=== PATIENT | female | born 1970 | race Caucasian/White ===

== ENCOUNTER 2017-01-05 00:22 | Observation (INO) | payer OTHER ==
[2017-01-05] MEDS ORDERED: ASPIRIN 81 MG CHEW PO STA (00:45)
[2017-01-05] MEDS ORDERED: NITROGLYCERIN SL TABS 0.4 MG TAB SUBLINGUAL STA (00:45)
--- NOTE | 2017-01-05 00:50 | ED ---
General Adult HPI - General Chief complaint: Chest Pain Stated complaint: Chest Pain Time Seen by Provider: 01/05/17 00:40 Source: patient, RN notes reviewed Mode of arrival: EMS Limitations: no limitations - History of Present Illness Initial comments: Patient is a pleasant 46-year-old female presenting to the emergency Department with palpitations. Onset was around 2 hours ago. Symptoms have resolved with adenosine by EMS. They did report patient being in SVT. Patient has had similar symptoms approximately 5 times previously. Patient has had some intermittent left scapular discomfort since yesterday that radiates anteriorly towards the chest. No chest discomfort at this time. Patient has some mild back discomfort at this time. No leg pain or leg swelling. No cough or fever. Patient states she may been slightly short of breath earlier. No nausea or diaphoresis. Patient is currently staying at [facility] for heroin and crack problems. - Related Data Allergies Allergy/AdvReac Type Severity Reaction Status Date / Time shellfish derived [Shellfish] AdvReac Rash/Hives Verified 01/05/17 00:32 tramadol [From Ultram] AdvReac Unknown Verified 01/05/17 00:32 Review of Systems ROS Statement: Those systems with pertinent positive or pertinent negative responses have been documented in the HPI. ROS Other: All systems not noted in ROS Statement are negative. Constitutional: Denies: fever Eyes: Denies: eye pain ENT: Denies: ear pain Respiratory: Reports: dyspnea. Denies: cough Cardiovascular: Reports: chest pain Endocrine: Denies: fatigue Gastrointestinal: Denies: abdominal pain Genitourinary: Denies: dysuria Musculoskeletal: Reports: back pain Skin: Denies: rash Neurological: Denies: headache Past Medical History Past Medical History: Asthma Additional Past Medical History / Comment(s): hx SVT History of Any Multi-Drug Resistant Organisms: None Reported Past Surgical History: Cholecystectomy, Tonsillectomy, Tubal Ligation Past Psychological History: Anxiety, Depression Smoking Status: Current every day smoker Past Alcohol Use History: None Reported Past Drug Use History: Cocaine, Heroin General Exam Limitations: no limitations General appearance: alert, in no apparent distress Head exam: Present: atraumatic Eye exam: Present: normal appearance, PERRL ENT exam: Present: normal oropharynx Neck exam: Present: normal inspection Respiratory exam: Present: normal lung sounds bilaterally. Absent: chest wall tenderness Cardiovascular Exam: Present: regular rate, normal rhythm Expanded Peripheral pulses: 2+: Radial (R), Radial (L), Dorsalis Pedis (R), Dorsalis Pedis (L) GI/Abdominal exam: Present: soft. Absent: tenderness Extremities exam: Present: normal inspection. Absent: pedal edema, calf tenderness Back exam: Present: tenderness (Minimal tenderness inferior lateral to left scapula) Neurological exam: Present: alert Psychiatric exam: Present: normal affect, normal mood Skin exam: Present: normal color Course Vital Signs 01/05/17 01/05/17 01/05/17 00:25 00:40 00:57 Temperature 98.0 F Pulse Rate 88 88 90 Respiratory 20 18 18 Rate Blood Pressure 123/77 123/83 111/72 O2 Sat by Pulse 98 98 99 Oximetry 01/05/17 01/05/17 01:27 02:09 Temperature Pulse Rate 80 59 L Respiratory 20 20 Rate Blood Pressure 111/71 118/76 O2 Sat by Pulse 98 97 Oximetry EKG Findings - EKG Comments: EKG Findings:: Normal sinus rhythm 86. MI 144. QRS 72. QT 378. QTC 452. Normal axis. Normal QRS. No acute ST change. Medical Decision Making - Medical Decision Making Patient reexamined and resting comfortably in bed. Patient symptom-free following a trip glycerin. Patient updated on results and plan. Case discussed with practitioner assistant women's tennis coach, who will admit for Dr. Johnson, covering for hospital call. - Lab Data Result diagrams: 01/05/17 00:40 01/05/17 00:40 Lab Results 01/05/17 01/05/17 01/05/17 Range/Units 00:40 00:40 00:40 WBC 6.5 (3.8-10.6) k/uL RBC 4.63 (3.80-5.40) m/uL Hgb 13.9 (11.4-16.0) gm/dL Hct 41.8 (34.0-46.0) % MCV 90.3 (80.0-100.0) fL MCH 30.1 (25.0-35.0) pg MCHC 33.3 (31.0-37.0) g/dL RDW 15.1 (11.5-15.5) % Plt Count 190 (150-450) k/uL Neutrophils % 51 % Lymphocytes % 40 % Monocytes % 4 % Eosinophils % 2 % Basophils % 1 % Neutrophils # 3.3 (1.3-7.7) k/uL Lymphocytes # 2.6 (1.0-4.8) k/uL Monocytes # 0.3 (0-1.0) k/uL Eosinophils # 0.1 (0-0.7) k/uL Basophils # 0.1 (0-0.2) k/uL PT (9.0-12.0) sec INR (<1.1) APTT (22.0-30.0) sec D-Dimer (<0.60) mg/L FEU Sodium 139 (137-145) mmol/L Potassium 4.5 (3.5-5.1) mmol/L Chloride 110 H (98-107) mmol/L Carbon Dioxide 19 L (22-30) mmol/L Anion Gap 10 mmol/L BUN 19 H (7-17) mg/dL Creatinine 0.70 (0.52-1.04) mg/dL Est GFR (MDRD) Af Amer >60 (>60 ml/min/1.73 sqM) Est GFR (MDRD) Non-Af >60 (>60 ml/min/1.73 sqM) Glucose 105 H (74-99) mg/dL Calcium 9.4 (8.4-10.2) mg/dL Magnesium 2.0 (1.6-2.3) mg/dL Total Bilirubin 0.3 (0.2-1.3) mg/dL AST 31 (14-36) U/L ALT 49 (9-52) U/L Alkaline Phosphatase 77 (38-126) U/L Total Creatine Kinase 44 (30-135) U/L CK-MB (CK-2) 0.9 (0.0-2.4) ng/mL CK-MB (CK-2) Rel Index 2.0 Troponin I <0.012 (0.000-0.034) ng/mL Total Protein 6.9 (6.3-8.2) g/dL Albumin 3.9 (3.5-5.0) g/dL TSH 2.960 (0.465-4.680) mIU/L Free T4 0.80 (0.78-2.19) ng/dL Free T3 pg/mL 3.3 (2.8-5.3) pg/ml 01/05/17 Range/Units 00:40 WBC (3.8-10.6) k/uL RBC (3.80-5.40) m/uL Hgb (11.4-16.0) gm/dL Hct (34.0-46.0) % MCV (80.0-100.0) fL MCH (25.0-35.0) pg MCHC (31.0-37.0) g/dL RDW (11.5-15.5) % Plt Count (150-450) k/uL Neutrophils % % Lymphocytes % % Monocytes % % Eosinophils % % Basophils % % Neutrophils # (1.3-7.7) k/uL Lymphocytes # (1.0-4.8) k/uL Monocytes # (0-1.0) k/uL Eosinophils # (0-0.7) k/uL Basophils # (0-0.2) k/uL PT 11.0 (9.0-12.0) sec INR 1.1 (<1.1) APTT 27.5 (22.0-30.0) sec D-Dimer 0.21 (<0.60) mg/L FEU Sodium (137-145) mmol/L Potassium (3.5-5.1) mmol/L Chloride (98-107) mmol/L Carbon Dioxide (22-30) mmol/L Anion Gap mmol/L BUN (7-17) mg/dL Creatinine (0.52-1.04) mg/dL Est GFR (MDRD) Af Amer (>60 ml/min/1.73 sqM) Est GFR (MDRD) Non-Af (>60 ml/min/1.73 sqM) Glucose (74-99) mg/dL Calcium (8.4-10.2) mg/dL Magnesium (1.6-2.3) mg/dL Total Bilirubin (0.2-1.3) mg/dL AST (14-36) U/L ALT (9-52) U/L Alkaline Phosphatase (38-126) U/L Total Creatine Kinase (30-135) U/L CK-MB (CK-2) (0.0-2.4) ng/mL CK-MB (CK-2) Rel Index Troponin I (0.000-0.034) ng/mL Total Protein (6.3-8.2) g/dL Albumin (3.5-5.0) g/dL TSH (0.465-4.680) mIU/L Free T4 (0.78-2.19) ng/dL Free T3 pg/mL (2.8-5.3) pg/ml - Radiology Data Radiology results: image reviewed (Chest x-ray shows no airspace consolidation. Tiny rounded metallic foreign bodies soft tissue lower back.) Critical Care Time Critical Care Time: Yes Total Critical Care Time: 31 Disposition Clinical Impression: Unstable angina pectoris Disposition: ADMITTED IP TO THIS HOSP Referrals: None,Stated [Primary Care Provider] - 1-2 days Decision Time: 02:21
[2017-01-05 00:58] LABS: Basophils # (A) 0.1 k/uL (0-0.2); Basophils % (A) 1 %; CH 30.7; CHCM 34.1; Eosinophils # (A) 0.1 k/uL (0-0.7); Eosinophils % (A) 2 %; HCT 41.8 % (34.0-46.0); HDW 2.37; HGB 13.9 gm/dL (11.4-16.0); Luc # (Auto) 0.17; Luc % (Auto) 3; Lymphocytes # (A) 2.6 k/uL (1.0-4.8); Lymphocytes % (A) 40 %; MCH 30.1 pg (25.0-35.0); MCHC 33.3 g/dL (31.0-37.0); MCV 90.3 fL (80.0-100.0); Mean Platelet Volume 8.2; Monocytes # (A) 0.3 k/uL (0-1.0); Monocytes % (A) 4 %; Neutrophils # (A) 3.3 k/uL (1.3-7.7); Neutrophils % (A) 51 %; RBC 4.63 m/uL (3.80-5.40); RDW 15.1 % (11.5-15.5); WBC 6.5 k/uL (3.8-10.6); WBC (Perox) 6.35
[2017-01-05 01:09] LABS: ALT 49 U/L (9-52); AST 31 U/L (14-36); Alkaline Phosphatase 77 U/L (38-126); Anion Gap 10 mmol/L; Blood Urea Nitrogen 19 mg/dL (7-17); Calcium 9.4 mg/dL (8.4-10.2); Carbon Dioxide 19 mmol/L (22-30); Chloride 110 mmol/L (98-107); Glucose 105 mg/dL (74-99); Non-African American GFR(MDRD) >60 (>60 ml/min/1.73 sqM); Potassium 4.5 mmol/L (3.5-5.1); Sodium 139 mmol/L (137-145); Total Bilirubin 0.3 mg/dL (0.2-1.3); Total Protein 6.9 g/dL (6.3-8.2)
[2017-01-05 01:14] LABS: INR 1.1 (<1.1); Partial Thromboplastin Time 27.5 sec (22.0-30.0)
[2017-01-05 01:27] LABS: Creatine Kinase 44 U/L (30-135)
[2017-01-05 01:38] LABS: Creatine Kinase MB 0.9 ng/mL (0.0-2.4); Troponin I <0.012 ng/mL (0.000-0.034)
--- NOTE | 2017-01-05 02:14 | XR ---
EXAM: XR Chest, 2 Views CLINICAL HISTORY: Tachycardia. Chest pain. TECHNIQUE: Frontal and lateral views of the chest. COMPARISON: No relevant prior studies available. FINDINGS: Lungs: No airspace consolidation. Pleural space: No significant pleural effusion. No pneumothorax. Heart: Normal cardiac silhouette. Mediastinum: Unremarkable. Bones/joints: Unremarkable as visualized. Soft tissues: Tiny rounded metallic foreign bodies project over the soft tissues of the lower back. IMPRESSION: 1. No airspace consolidation or pleural effusion. 2. Normal cardiac mediastinal silhouette. 3. Tiny rounded metallic foreign bodies project over the soft tissues of the lower back.
[2017-01-05] MEDS ORDERED: HEPARIN SODIUM,PORCINE 5,000 UNIT/ML 1 ML VIAL IV ONE (02:21)
[2017-01-05] MEDS ORDERED: HEPARIN SODIUM,PORCINE 5,000 UNIT/ML 1 ML VIAL IV PRN (02:21)
[2017-01-05] MEDS ORDERED: NITROGLYCERIN SL TABS 0.4 MG TAB SUBLINGUAL PRN (02:21)
[2017-01-05] MEDS ORDERED: HEPARIN SODIUM,PORCINE/D5W PMX 25,000 UNIT in DEXTROSE/WATER 1 500ML.BAG IV SCH (02:30)
[2017-01-05 03:38] VITALS: BMI 25.1
[2017-01-05 04:55] VITALS: RESP 18
[2017-01-05] MEDS ORDERED: NITROGLYCERIN OINT 1 INCH/GM PACKET TOPICAL SCH (06:00)
[2017-01-05 07:17] LABS: Mean Platelet Volume 8.1
[2017-01-05 07:55] LABS: Creatine Kinase 29 U/L (30-135)
[2017-01-05 08:07] LABS: Creatine Kinase MB 0.7 ng/mL (0.0-2.4); Troponin I <0.012 ng/mL (0.000-0.034)
--- NOTE | 2017-01-05 10:25 | P.CRDCN ---
History of Present Illness Consult date: 01/05/17 Requesting physician: Abdoul Johnson Reason for Consult (text): SVT Chief complaint: Palpitations History of present illness: This is a 46-year-old female with history of prior episodes of SVT, asthma, nicotine dependence, emphysema,anxiety, who is currently at [facility] for heroin use. Yesterday the patient states that she felt palpitations in her heart racing fast, she's had multiple episodes of SVT in the past and she states usually when she bears down she can break herself out of it. She was unable to do this yesterday and therefore EMS was called. According to EMS documentation, on her arrival patient's heart rate was 170, they did give her 6 mg of adenosine and she converted to normal sinus rhythm. We don't have a copy of that EKG in the chart. Blood pressure on arrival 116/77. Chest x-ray did not reveal any consolidation or pleural effusion. Initial EKG was performed here on arrival was normal sinus rhythm with no acute changes. Repeat EKG this morning shows normal sinus rhythm with no acute changes. CBC normal. D-dimer 0.21. Potassium 4.5, BUN 19, creatinine 0.7. Troponins have been negative 2. TSH and free T4 are normal. Magnesium 2.0. Let pressure this morning 102/60 with heart rate in the 60s. According to the patient, she states she used to be on metoprolol tartrate 50 mg, but has not taken any of her medications for approximately 2 years she has been homeless. Patient is quite anxious this morning because she is scheduled to have a meeting at noon at [facility] regarding housing for her. She is afraid if she notices a meeting that she will again be homeless. No further episodes of SVT here. Past Medical History Past Medical History: Asthma, Supraventricular Tachycardia (SVT) Additional Past Medical History / Comment(s): last episode of SVT was 2 mo ago pt no longer takes meds for it due to being homeless ,hypoglyemia History of Any Multi-Drug Resistant Organisms: None Reported Past Surgical History: Cholecystectomy, Tonsillectomy, Tubal Ligation Past Anesthesia/Blood Transfusion Reactions: No Reported Reaction Past Psychological History: Anxiety, Depression Smoking Status: Current every day smoker Past Alcohol Use History: None Reported Past Drug Use History: Cocaine, Heroin Additional Drug Use History / Comment(s): pt currently in [facility] for rehab. last use date was 12/20/16 - daily user prior to rehab for 1.5 to 2 years - Past Family History Father Family Medical History: Congestive Heart Failure (CHF) Additional Family Medical History / Comment(s): passed at 50 Mother Additional Family Medical History / Comment(s): defib insertion passed at 67 Medications and Allergies Home Medications Medication Instructions Recorded Confirmed Type Acetaminophen Tab [Tylenol Tab] 650 mg PO Q4H PRN 01/05/17 01/05/17 History Calcium Carb/Magnesium Ox,Carb 2 tab PO TID PRN 01/05/17 01/05/17 History [Jaciel-Mag 500-250 MG Chewable] Ibuprofen [Motrin] 600 mg PO Q6HR PRN 01/05/17 01/05/17 History Mirtazapine [Remeron] 15 mg PO HS PRN 01/05/17 01/05/17 History Ondansetron HCl [Zofran] 8 mg PO Q6H PRN 01/05/17 01/05/17 History busPIRone HCl [Buspar] 10 mg PO TID PRN 01/05/17 01/05/17 History Allergies Allergy/AdvReac Type Severity Reaction Status Date / Time shellfish derived [Shellfish] AdvReac Rash/Hives Verified 01/05/17 08:08 tramadol [From Ultram] AdvReac Unknown Verified 01/05/17 08:08 Physical Exam Vitals: Vital Signs Temp Pulse Pulse Pulse Resp BP BP 01/05/17 07:43 98.0 F 61 18 103/63 01/05/17 04:00 97.9 F 63 70 18 97/56 01/05/17 03:22 97.7 F 64 20 99/62 01/05/17 02:09 59 L 20 118/76 01/05/17 01:27 80 20 111/71 01/05/17 00:57 90 18 111/72 01/05/17 00:40 88 18 123/83 01/05/17 00:25 98.0 F 88 20 123/77 Pulse Ox 01/05/17 07:43 99 01/05/17 04:00 98 01/05/17 03:22 100 01/05/17 02:09 97 01/05/17 01:27 98 01/05/17 00:57 99 01/05/17 00:40 98 01/05/17 00:25 98 Intake and Output 01/04/17 01/05/17 01/05/17 22:59 06:59 14:59 Other: Voiding Method Toilet Toilet # Voids 2 Weight 60.5 kg PHYSICAL EXAMINATION: HEENT: Head is atraumatic, normocephalic. Pupils equal, round. Neck is supple. There is no elevated jugular venous pressure. HEART EXAMINATION: Heart S1, S2 normal. No murmur or gallop heard. CHEST EXAMINATION: His reveal decreased air exchange throughout with scattered coarse wheezes throughout. Patient is noted to have several small patches on her mid and lower back apparently used for pain control. ABDOMEN: Soft, nontender. Bowel sounds are heard. No organomegaly noted. EXTREMITIES:1+ peripheral pulses with no evidence of peripheral edema and no calf tenderness noted. NEUROLOGIC patient is awake, alert and oriented -3. . Results 01/05/17 06:20 01/05/17 00:40 Cardiac Enzymes 01/05/17 01/05/17 01/05/17 Range/Units 00:40 00:40 06:20 AST 31 (14-36) U/L CK-MB (CK-2) 0.9 0.7 (0.0-2.4) ng/mL Troponin I <0.012 <0.012 (0.000-0.034) ng/mL Coagulation 01/05/17 Range/Units 00:40 PT 11.0 (9.0-12.0) sec APTT 27.5 (22.0-30.0) sec CBC 01/05/17 01/05/17 Range/Units 00:40 06:20 WBC 6.5 (3.8-10.6) k/uL RBC 4.63 (3.80-5.40) m/uL Hgb 13.9 (11.4-16.0) gm/dL Hct 41.8 (34.0-46.0) % Plt Count 190 204 (150-450) k/uL Comprehensive Metabolic Panel 01/05/17 Range/Units 00:40 Sodium 139 (137-145) mmol/L Potassium 4.5 (3.5-5.1) mmol/L Chloride 110 H (98-107) mmol/L Carbon Dioxide 19 L (22-30) mmol/L BUN 19 H (7-17) mg/dL Creatinine 0.70 (0.52-1.04) mg/dL Glucose 105 H (74-99) mg/dL Calcium 9.4 (8.4-10.2) mg/dL AST 31 (14-36) U/L ALT 49 (9-52) U/L Alkaline Phosphatase 77 (38-126) U/L Total Protein 6.9 (6.3-8.2) g/dL Albumin 3.9 (3.5-5.0) g/dL Current Medications Generic Name Dose Route Start Last Admin Trade Name Freq PRN Reason Stop Dose Admin Aspirin 325 mg 01/06/17 09:00 Aspirin PO DAILY [facility] Heparin Sodium (Porcine) 0 unit 01/05/17 02:21 Heparin IV Q6HR PRN Low PTT Protocol Heparin Sodium/Dextrose 25,000 500 mls @ 14.47 mls/hr 01/05/17 02:30 03:13 unit/ IV Solution IV 12 units/kg/hr .Q24H [facility] 14.47 mls/hr Protocol Administration 12 UNITS/KG/HR Nitroglycerin 1 inch 01/05/17 06:00 01/05/17 06:42 Nitro-Bid Oint TOPICAL Not Given Q6HR [facility] Nitroglycerin 0.4 mg 01/05/17 02:21 Nitrostat SUBLINGUAL Q5M PRN Chest Pain Intake and Output 01/04/17 01/05/17 01/05/17 22:59 06:59 14:59 Other: Voiding Method Toilet Toilet # Voids 2 Weight 60.5 kg 01/05/17 06:20 01/05/17 00:40 EKG Interpretations (text) EKG here shows normal sinus rhythm with no acute changes. Assessment and Plan Plan: Assessment and plan #1 symptoms of palpitations and heart racing, according to EMS documentation patient was in SVT, we do not have an EKG at this time. Have requested a copy of that EKG. Patient did receive 6 mg of adenosine. EKG on arrival here shows normal sinus rhythm with no acute changes. TSH and free T4 are normal. #2 history of prior episodes of SVT #3 heroin use currently on rehab #4 emphysema and asthma #5 nicotine dependence #6 anxiety Plan We will obtain an echocardiogram with Doppler study. We will also attempt to obtain an EKG from the EMS. Discontinue IV heparin, discontinue Nitropaste and aspirin. We will start the patient on a beta bryant. A follow-up appointment will be made with Dr. VC Fletcher in the office in 2-3 weeks, patient then will be referred to Dr. Rosales for possible ablation. Further recommendations to follow. DNP note has been reviewed, I agree with a documented findings and plan of care. Patient was seen and examined.
[2017-01-05] MEDS ORDERED: METOPROLOL TARTRATE 25 MG TAB PO SCH (10:45)
[2017-01-05 11:52] VITALS: BP 120/66; PULSE 79; TEMP 98.5
--- NOTE | 2017-01-05 14:42 | ECHOF ---
Referral Reason:chest pain/SVT MEASUREMENTS -------- HEIGHT: 154.9 cm WEIGHT: 60.3 kg BP: RVIDd: 2.4 cm (< 3.3) IVSd: 1.2 cm (0.6 - 1.1) LVIDd: 3.9 cm (3.9 - 5.3) LVPWd: 1.2 cm (0.6 - 1.1) IVSs: 1.5 cm LVIDs: 3.0 cm LVPWs: 1.4 cm LAESV Index (A-L): 20.26 ml/m Ao Diam: 3.3 cm (2.0 - 3.7) AV Cusp: 1.7 cm (1.5 - 2.6) LA Diam: 2.6 cm (2.7 - 3.8) MV EXCURSION: 15.271 mm (> 18.000) MV EF SLOPE: 59 mm/s (70 - 150) EPSS: 2.2 cm MV E Koffi: 0.48 m/s MV DecT: 411 ms MV A Koffi: 0.82 m/s MV E/A Ratio: 0.58 RAP: 5.00 mmHg RVSP: 21.28 mmHg FINDINGS -------- Sinus rhythm. This was a technically good study. There is mild concentric left ventricular hypertrophy. Overall left ventricular systolic function is normal with, an EF between 55 - 60 %. The right ventricle is normal in size and function. Normal LA size by volume 22+/-6 ml/m2. The right atrium is normal in size. Eustachian valve seen in the right atrium (normal finding). The aortic valve is trileaflet, and appears structurally normal. No aortic stenosis or regurgitation. The mitral valve leaflets are mildly thickened. Mild mitral annular calcification present. There is trace to mild mitral regurgitation. Trace tricuspid regurgitation present. There is no evidence of pulmonary hypertension. The right ventricular systolic pressure, as measured by Doppler, is 21.28mmHg. Pulmonic valve appears structurally normal. The aortic root size is normal. Normal inferior vena cava with normal inspiratory collapse consistent with estimated right atrial pressure of 5 mmHg. The pericardium is normal. Echo free space indicative of a pericardial fat pad. CONCLUSIONS -------- 1. Sinus rhythm. 2. There is trace to mild mitral regurgitation. 3. Trace tricuspid regurgitation present. 4. There is no evidence of pulmonary hypertension. 5. The right ventricular systolic pressure, as measured by Doppler, is 21.28mmHg. 6. The aortic root size is normal. 7. Echo free space indicative of a pericardial fat pad. 8. This was a technically good study. 9. There is mild concentric left ventricular hypertrophy. 10. Overall left ventricular systolic function is normal with, an EF between 55 - 60 %. 11. Normal LA size by volume 22+/-6 ml/m2. 12. Eustachian valve seen in the right atrium (normal finding). 13. The aortic valve is trileaflet, and appears structurally normal. No aortic stenosis or regurgitation. 14. The mitral valve leaflets are mildly thickened. 15. Mild mitral annular calcification present. BAGG[employer] HANDLING SUPERVISOR: Zaid Rod RDCS
[2017-01-06] MEDS ORDERED: ASPIRIN 325 MG TAB PO SCH (09:00)
--- NOTE | 2017-01-07 22:15 | HP ---
CHIEF COMPLAINT: Heart racing fast. HISTORY OF ILLNESS: Ms. Montgomery is a 46-year-old female with a known history of SVT, on beta bryant in the form of metoprolol, asthma, nicotine addiction, emphysema, anxiety, who is currently at [facility] for heroin abuse. Apparently the patient had a feeling of her heart racing fast and palpitations. EMS was called and, per the EMS report, the patient was having multiple episodes of SVT and was given 6 mg of adenosine and converted to sinus rhythm. The patient had an EKG done in the hospital that showed normal sinus rhythm. The patient had a workup, including chest x-ray and EKG which were negative. Serial EKGs and troponins have been negative. The patient does not have any elevated D-dimer, which is 0.21. The patient has normal TSH level and free T4 level. Currently she denies any complaints of chest pain or shortness of breath. No nausea, vomiting or abdominal pain. Patient denied any recent illnesses. Patient is currently at [facility] for heroin abuse. REVIEW OF SYSTEMS: CONSTITUTIONAL: No fever. No chills. RESPIRATORY: No cough or sputum production. CARDIOVASCULAR: No chest pain or shortness of breath. ABDOMEN: No nausea, vomiting, abdominal pain. GENITOURINARY: No dysuria or hematuria. ENDOCRINE: Negative. PSYCHIATRY: Negative. SKIN: Negative. All other 14-point review of systems negative except as above. PAST MEDICAL HISTORY: 1. Asthma. 2. Sinus tachycardia. 3. Heroin abuse. PAST SURGICAL HISTORY: 1. Cholecystectomy. 2. Tonsillectomy. 3. Tubal ligation. PSYCHOSOCIAL HISTORY: Anxiety, depression. SOCIAL HISTORY: Currently an everyday smoker. Smokes about half to one pack per day. Patient does have heroin and cocaine abuse. Patient currently is in [facility] for rehab. Last use was on 12/20/16. Daily user prior to rehab for 1-1/2 to 2 years. FAMILY HISTORY: Father had CHF; at 50. Mother and defibrillation ( ) passed at 67. Home medications include: 1. Tylenol. 2. Calcium carbonate. 3. Magnesium oxide. 4. Ibuprofen. 5. Mirtazapine. 6. Zofran. 7. BuSpar. ALLERGIES include: 1. SHELLFISH. 2. TRAMADOL. PHYSICAL EXAMINATION: Uybau-[id number]-[id number]-old female lying in the bed. Awake, alert and oriented x3. Appears to be in no distress. VITALS: Blood pressure 103/63, pulse 61, respiration 18, temperature afebrile, pulse ox 99% on room air. HEENT: Atraumatic, normocephalic. NECK: Supple. No JVD. CVS: S1, S2 heard. No murmurs. No gallop. No leg swelling. ABDOMEN: Soft, non-tender. Bowel sounds present. CHARGE AIDE: Awake, alert, oriented x3. No focal deficit. EXTREMITIES: No edema. Pulses palpable bilaterally. No clubbing or cyanosis. PSYCHIATRIC: Cooperative. LABORATORY DATA: WBC 6.5, hemoglobin 13.9, platelets 190. INR is 1.1. D-dimer is 0.21. Sodium 139, potassium 4.5, chloride 110, bicarb 19. BUN 19, creatinine 0.7. Blood sugar is 105. CPK level is 29. Troponin x2 negative. TSH within normal limits. Chest x-ray negative. EKG showed normal sinus rhythm. IMPRESSION: 1.Symptoms of palpitations and heart racing fast secondary to possible supraventricular tachycardia. While with EMS, patient was given 6 mg of adenosine and converted to normal sinus rhythm. EKG showed normal sinus rhythm. No acute events overnight in the hospital. 2. Prior history of supraventricular tachycardia. Patient was on metoprolol 50 mg b.i.d.; currently not taking. 3. Heroin use and cocaine use. Currently in [facility] rehab. 4. Emphysema and asthma. 5. Nicotine addiction. 6. Anxiety. ASSESSMENT AND PLAN: Patient will be continued on telemetry monitoring. Cardiology recommended 2-D echocardiogram. Started on low-dose beta bryant. Cardiology recommended followup in the clinic. Will continue the current management and arrange for discharge today. [facility]'S HOSPITALYonis
--- NOTE | 2017-01-08 13:28 | DS ---
DATE OF ADMISSION: 01/05/2017 DATE OF DISCHARGE: 01/05/2017 DISCHARGE DIAGNOSES: 1. Palpitations and heart racing fast, most likely secondary to supraventricular tachycardia, converted to sinus rhythm with 6 mg of adenosine by EMS. EKG showed normal sinus rhythm after she came to the hospital. No issues at this time. 2. History of prior supraventricular tachycardia. 3. Heroin and cocaine abuse, currently in [facility] rehab. 4. Emphysema and asthma. 5. Nicotine addiction. 6. Anxiety. HOSPITAL COURSE: Ms. Montgomery is a 46-year-old female with known history of cocaine and heroin abuse who is currently at [facility] for rehab. She apparently developed symptoms of heart racing fast and palpitations. She was brought to the hospital by EMS. She was found to be in SVT en route and was given 6 mg of adenosine and converted to sinus rhythm. Patient was monitored closely. TSH is normal. Two-D echo was obtained as per cardiology recommendations. Troponin x2 is negative. Patient was advised to follow up with Dr. Fletcher as an outpatient in the clinic. Patient is currently asymptomatic. Patient was tried on low-dose beta bryant. She is currently stable to be discharged home and follow with [facility] rehab. DISCHARGE PHYSICAL EXAMINATION: Rwfim-[id number]-hgxe-old female lying in the bed comfortably. Alert and oriented x3. Appears to be in no distress. VITALS: Blood pressure is 120/66, pulse rate 79, respirations 18, temperature afebrile, pulse 98% on room air. Laboratory data reviewed. Discharge physical examination done. Discharge medications include: 1. Tylenol 650 mg q.4 hourly p.r.n. for pain. 2. Calcium carbonate and magnesium 500/250 two tablets p.o. t.i.d. p.r.n. 3. Ibuprofen 600 mg p.o. q.6 hourly p.r.n. for pain. 4. Metoprolol 25 mg p.o. b.i.d. 5. Mirtazapine 15 mg at bedtime p.r.n. 6. Zofran 8 mg p.o. q.6 hourly p.r.n. for nausea, vomiting. 7. BuSpar 10 mg p.o. t.i.d. The patient will be discharged home with self-care, heart-healthy diet, and follow up with Dr. Fletcher in 3 weeks. MTDD
== END 2017-01-05 13:00 | disposition home or self-care (01) ==
LOC: EC 00:22 → 3OBS 02:21
PROVIDERS: ADMIT Hospitalist; ATTEND Hospitalist
DX: I20.0 Unstable angina (principal); R00.2 Palpitations; I47.1 Supraventricular tachycardia; F11.10 Opioid abuse, uncomplicated; F14.10 Cocaine abuse, uncomplicated; J43.9 Emphysema, unspecified; F17.210 Nicotine dependence, cigarettes, uncomplicated; F41.9 Anxiety disorder, unspecified; F32.9 Major depressive disorder, single episode, unspecified; J45.909 Unspecified asthma, uncomplicated; Z90.49 Acquired absence of other specified parts of digestive tract; M79.5 Residual foreign body in soft tissue; Z59.0 Homelessness; Z82.49 Family history of ischemic heart disease and other diseases of the circulatory system; Z79.899 Other long term (current) drug therapy; Z88.8 Allergy status to other drugs, medicaments and biological substances; Z91.013 Allergy to seafood
CPT/HCPCS: 96374 ×2; 99291 ×2; 36415; 93005; 93306; 85379; 84439; 84481; 80053; 82550; 82553; 83735; 84443; 84484; 85025; 85049; 85610; 85730; 71020; G0378; J1644 ×2

== ENCOUNTER 2017-08-11 13:39 | Emergency (ER) | payer OTHER ==
[2017-08-11 13:53] VITALS: BP 150/75; PULSE 70; RESP 16; TEMP 98
[2017-08-11] MEDS ORDERED: IBUPROFEN 600 MG TAB PO STA (14:05)
--- NOTE | 2017-08-11 14:09 | ED ---
General Adult HPI - General Chief complaint: Extremity Injury, Upper Stated complaint: IHS/ Elbow pain Time Seen by Provider: 08/11/17 13:54 Source: patient, RN notes reviewed Mode of arrival: ambulatory Limitations: no limitations - History of Present Illness Initial comments: 46 yo female presents to the emergency department with a chief complaint of right elbow pain. She states it started hurting last night. She states she has some pain with gripping and movement. She does do a lot of heavy lifting. She denies any falls traumas or injuries to the elbow. She denies any other concerns. Patient denies any recent fever, chills, shortness of breath, chest pain, back pain, abdominal pain, nausea vomiting, numbness or tingling, dysuria or hematuria, constipation or diarrhea, headaches or visual changes, or any other current symptoms. - Related Data Home Medications Medication Instructions Recorded Confirmed Gabapentin [Neurontin] 100 mg PO TID 08/11/17 08/11/17 Previous Rx's Medication Instructions Recorded Ibuprofen [Motrin] 600 mg PO Q6HR PRN #20 tab 08/11/17 Allergies Allergy/AdvReac Type Severity Reaction Status Date / Time shellfish derived [Shellfish] Allergy Rash/Hives Verified 08/11/17 14:21 tramadol [From Ultram] AdvReac grand mal Verified 08/11/17 14:21 seizures Review of Systems ROS Statement: Those systems with pertinent positive or pertinent negative responses have been documented in the HPI. ROS Other: All systems not noted in ROS Statement are negative. Past Medical History Past Medical History: Asthma, Supraventricular Tachycardia (SVT) Additional Past Medical History / Comment(s): last episode of SVT was 2 mo ago pt no longer takes meds for it due to being homeless ,hypoglyemia History of Any Multi-Drug Resistant Organisms: None Reported Past Surgical History: Cholecystectomy, Tonsillectomy, Tubal Ligation Past Anesthesia/Blood Transfusion Reactions: No Reported Reaction Past Psychological History: Anxiety, Depression Smoking Status: Current every day smoker Past Alcohol Use History: None Reported Past Drug Use History: Cocaine, Heroin - Past Family History Father Family Medical History: Congestive Heart Failure (CHF) Additional Family Medical History / Comment(s): passed at 50 Mother Additional Family Medical History / Comment(s): defib insertion passed at 67 General Exam - General Exam Comments Initial Comments: General: The patient is awake and alert, in no distress, and does not appear acutely ill. Neck: The neck is supple, there is no tenderness. Cardiovascular: There is a regular rate and rhythm. No murmur, rub or gallop is appreciated. Respiratory: Lungs are clear to auscultation, respirations are non-labored, breath sounds are equal. No wheezes, stridor, rales, or rhonchi. Musculoskeletal: Sensation intact with 2+ pulses. X-ray. Fund motion of right wrist right elbow and right shoulder. She does have some pain over the lateral malleolus. No associated swelling or redness noted. Neurological: CN II-XII intact, There are no obvious motor or sensory deficits. Coordination appears grossly intact. Speech is normal. Skin: Skin is warm and dry and no rashes or lesions are noted. Psychiatric: Normal mood and affect. Limitations: no limitations Course Vital Signs 08/11/17 13:51 Temperature 98 F Pulse Rate 70 Respiratory 16 Rate Blood Pressure 150/75 O2 Sat by Pulse 97 Oximetry Medical Decision Making - Medical Decision Making 38-year-old female presents for what appears to be a right elbow pain there is concern for tendinitis. We discussed Motrin for home. We discussed care follow -up return parameters all questions. Patient stated that she understood and she is agreement this plan. All questions have been answered. She will be discharged home. - Radiology Data Radiology results: report reviewed, image reviewed Disposition Clinical Impression: Right elbow tendonitis Disposition: HOME SELF-CARE Condition: Stable Instructions: Tennis Elbow (ED), Tendinitis (ED) Additional Instructions: Please use medication as discussed. Please follow up with family doctor if symptoms have not improved over the next two days. Please return to the emergency room if your symptoms increase or worsen or for any other concerns. Prescriptions: Ibuprofen [Motrin] 600 mg PO Q6HR PRN #20 tab PRN Reason: Pain Referrals: Azalea Martinez MD [Primary Care Provider] - 1-2 days Time of Disposition: 14:23
--- NOTE | 2017-08-11 14:22 | XR ---
Right elbow HISTORY: Pain, repetitious work 3 views of the right elbow Bone mineralization, joint spaces and alignment are maintained. No acute fracture or dislocation. No evident joint effusion. IMPRESSION: No significant abnormality is evident. Consider elbow MRI.
== END 2017-08-11 14:30 | disposition home or self-care (01) ==
LOC: EC 13:39
DX: M77.8 Other enthesopathies, not elsewhere classified (principal); F41.9 Anxiety disorder, unspecified; F17.200 Nicotine dependence, unspecified, uncomplicated; Z79.899 Other long term (current) drug therapy; Z88.5 Allergy status to narcotic agent; Z91.013 Allergy to seafood
CPT/HCPCS: 99283

== ENCOUNTER 2017-12-28 10:42 | Emergency (ER) | payer OTHER ==
[2017-12-28 11:41] VITALS: BP 121/71; PULSE 56; RESP 16; TEMP 98
--- NOTE | 2017-12-28 11:44 | ED ---
General Adult HPI - General Chief complaint: Extremity Injury, Lower Stated complaint: IHS - LEFT FOOT INJURY Time Seen by Provider: 12/28/17 11:35 Source: patient, RN notes reviewed Mode of arrival: ambulatory Limitations: no limitations - History of Present Illness Initial comments: This is a 47-year-old female who presents emergency Department complaining of left foot pain. Patient states last night when she was at work she dropped a plastic skin on her foot and in the midfoot is nontender. Patient denies ankle pain or toe pain. Patient denies any knee pain. Patient denies any other injury at this time. Patient denies any plantar surface pain. Patient denies any break in the skin. - Related Data Home Medications Medication Instructions Recorded Confirmed Gabapentin [Neurontin] 100 mg PO TID 08/11/17 08/11/17 Previous Rx's Medication Instructions Recorded Ibuprofen [Motrin] 600 mg PO Q6HR PRN #20 tab 08/11/17 Allergies Allergy/AdvReac Type Severity Reaction Status Date / Time shellfish derived [Shellfish] Allergy Rash/Hives Verified 12/28/17 11:41 tramadol [From Ultram] AdvReac grand mal Verified 12/28/17 11:41 seizures Review of Systems ROS Statement: Those systems with pertinent positive or pertinent negative responses have been documented in the HPI. ROS Other: All systems not noted in ROS Statement are negative. Past Medical History Past Medical History: Asthma, Supraventricular Tachycardia (SVT) Additional Past Medical History / Comment(s): last episode of SVT was 2 mo ago pt no longer takes meds for it due to being homeless ,hypoglyemia History of Any Multi-Drug Resistant Organisms: None Reported Past Surgical History: Cholecystectomy, Tonsillectomy, Tubal Ligation Past Anesthesia/Blood Transfusion Reactions: No Reported Reaction Past Psychological History: Anxiety, Depression Smoking Status: Current every day smoker Past Alcohol Use History: None Reported Past Drug Use History: Cocaine, Heroin - Past Family History Father Family Medical History: Congestive Heart Failure (CHF) Additional Family Medical History / Comment(s): passed at 50 Mother Additional Family Medical History / Comment(s): defib insertion passed at 67 General Exam - General Exam Comments Initial Comments: GENERAL Patient is well-developed and well-nourished. Patient is in mild distress. EYES Patient's pupils are equal and round. Extraocular motion is intact SKIN Unremarkable NEURO The patient is alert and oriented 3 PYSCH Patient has normal interpersonal interactions. MUSCULOSKELETAL Patient has tenderness on the dorsal surface of the left foot there is some minimal swelling as well. The area of tenderness is the second third and fourth metatarsal. Limitations: no limitations Course Vital Signs 12/28/17 11:38 Temperature 98 F Pulse Rate 56 L Respiratory 16 Rate Blood Pressure 121/71 O2 Sat by Pulse 98 Oximetry Medical Decision Making - Medical Decision Making X-ray shows no acute fracture. Disposition Clinical Impression: Contusion, foot Disposition: HOME SELF-CARE Condition: Good Instructions: Contusion in Adults (ED) Is patient prescribed a controlled substance at d/c from ED?: No Referrals: Azalea Martinez MD [Primary Care Provider] - 1-2 days Time of Disposition: 12:24
--- NOTE | 2017-12-28 11:56 | XR ---
EXAMINATION TYPE: XR foot complete LT DATE OF EXAM: 12/28/2017 COMPARISON: NONE HISTORY: Pain dropped plastic palate on foot one day prior TECHNIQUE: 3 views left foot FINDINGS: Mild varus deformity of the distal fourth and fifth digits are present. No acute displaced fractures are evident. Large calcaneal heel spur is present. Some minimal dorsal soft tissue swelling distally may be present. IMPRESSION: 1. Suggestion of mild soft tissue swelling distal dorsal foot. 2. Plantar calcaneal heel spur. 3. Follow-up exams can be performed 7-10 days from acute trauma for continued pain.
== END 2017-12-28 12:47 | disposition home or self-care (01) ==
LOC: EC 10:42
DX: S90.32XA Contusion of left foot, initial encounter (principal); F41.9 Anxiety disorder, unspecified; F17.200 Nicotine dependence, unspecified, uncomplicated; Z79.899 Other long term (current) drug therapy; Z88.5 Allergy status to narcotic agent; Z91.013 Allergy to seafood; W20.8XXA Other cause of strike by thrown, projected or falling object, initial encounter; Y92.69 Other specified industrial and construction area as the place of occurrence of the external cause; Y99.0 Civilian activity done for income or pay
CPT/HCPCS: 99283

== ENCOUNTER → 2018-01-04 | Outpatient (CLI) | payer OTHER ==
--- NOTE | 2018-01-04 15:55 | XR ---
EXAMINATION TYPE: XR foot complete LT DATE OF EXAM: 01/04/2018 CLINICAL HISTORY: Fall injury one week ago with pain worse in third digit. TECHNIQUE: Frontal, lateral, and oblique images of the left foot are obtained. COMPARISON: Left foot x-ray one week ago FINDINGS: There is no acute fracture/dislocation evident in the left foot. Flexion in varus position ing distal fourth and fifth toes is redemonstrated. The joint spaces in the left foot appear within normal limits. No new suspicious periosteal reaction is evident. The overlying soft tissue appears u nremarkable. Small to moderate-sized superior and inferior calcaneal spurs are redemonstrated on late ral view. IMPRESSION: There is no acute fracture or dislocation in the left foot. No significant change from p rior.
== END | disposition home or self-care (01) ==
LOC: RADXRMAIN 15:36
PROVIDERS: ATTEND Emergency Medicine
DX: S90.32XA Contusion of left foot, initial encounter (principal)

== ENCOUNTER 2018-10-27 12:07 | Emergency (ER) | payer BC, OTHER ==
[2018-10-27 12:50] LABS: Basophils % (A) 1 %; Eosinophils # (A) 0.1 k/uL (0-0.7); Eosinophils % (A) 2 %; HCT 35.9 % (34.0-46.0); HGB 11.8 gm/dL (11.4-16.0); Lymphocytes # (A) 0.9 k/uL (1.0-4.8); Lymphocytes % (A) 22 %; MCH 28.9 pg (25.0-35.0); MCV 87.5 fL (80.0-100.0); Mean Platelet Volume 8.9; Monocytes # (A) 0.2 k/uL (0-1.0); Monocytes % (A) 6 %; Neutrophils # (A) 2.6 k/uL (1.3-7.7); Neutrophils % (A) 66 %; Platelet Count 175 k/uL (150-450); RDW 14.5 % (11.5-15.5); WBC 3.9 k/uL (3.8-10.6)
[2018-10-27 13:00] LABS: ALT 34 U/L (9-52); AST 34 U/L (14-36); Albumin 3.9 g/dL (3.5-5.0); Alkaline Phosphatase 59 U/L (38-126); Anion Gap 9 mmol/L; Blood Urea Nitrogen 12 mg/dL (7-17); Calcium 8.8 mg/dL (8.4-10.2); Carbon Dioxide 18 mmol/L (22-30); Chloride 110 mmol/L (98-107); Glucose 105 mg/dL (74-99); Lipase 33 U/L (23-300); Magnesium 1.4 mg/dL (1.6-2.3); Sodium 137 mmol/L (137-145); Total Bilirubin 0.7 mg/dL (0.2-1.3); Total Protein 6.7 g/dL (6.3-8.2)
[2018-10-27 13:03] LABS: Potassium 4.7 mmol/L (3.5-5.1)
[2018-10-27 13:18] LABS: D-Dimer 0.23 mg/L FEU (<0.60); Partial Thromboplastin Time 35.9 sec (22.0-30.0); Prothrombin Time 10.7 sec (9.0-12.0)
--- NOTE | 2018-10-27 13:37 | XR ---
EXAMINATION TYPE: XR chest 2V DATE OF EXAM: 10/27/2018 COMPARISON: 01/05/2017 INDICATION: Abnormal EKG, cough TECHNIQUE: Frontal and lateral views of the chest are obtained. FINDINGS: The heart size is normal. The pulmonary vasculature is normal. The lungs are clear. IMPRESSION: 1. No acute pulmonary process.
--- NOTE | 2018-10-27 13:48 | ED ---
General Adult HPI - General Chief complaint: Chest Pain Stated complaint: abn EKG, chest pain yesterday Time Seen by Provider: 10/27/18 12:17 Source: patient Mode of arrival: ambulatory Limitations: no limitations - History of Present Illness Initial comments: 48-year-old female presenting today for as sent by primary care provider for further evaluation. Patient states that on-and-off for the past week she has had lightheaded sensation while at work. She states it happens spontaneously she does not know some pattern. She denies presyncope or syncopal episodes. Patient denies chest pain during these episodes. Patient states that she presented for evaluation at a primary care provider and had stated that she had a small amount of sharp chest pain while pushing and moving objects at work yesterday evening. About 18 hours ago. Patient states she did not have any chest pressure or burning sensation. She states it was stabbing with last about a second and go away she stated this happened a few times and then completely subsided after about 2 hours. Patient states this pain does not return. Patient denies a dyspnea or dyspnea on exertion. She states she has a every day smoker. Patient denies fever chills night sweats cough IV drug use leg swelling nausea vomiting epigastric pain upper extremity paresthesias or jaw pain. Patient states she feels like her normal self currently and is not sure why she is in the emergency department. She did state that there was an EKG abnormality that was obtained at office. I did contact Reginaldo SENA at patient's primary care office who sent patient in for evaluation who stated there was some slight flattening, which was the only concerning EKG findings. Patient was sent for laboratory studies.remaining review of system negative.. Upon arrival patient is well-appearing - Related Data Home Medications Medication Instructions Recorded Confirmed Ibuprofen [Motrin Ib] 800 mg PO Q6H PRN 10/27/18 10/27/18 Ipratropium-Albuterol Nebulize 3 ml INHALATION DAILY PRN 10/27/18 10/27/18 [Duoneb 0.5 mg-3 mg/3 ml Soln] Allergies Allergy/AdvReac Type Severity Reaction Status Date / Time shellfish derived [Shellfish] Allergy Rash/Hives Verified 10/27/18 12:39 tramadol [From Ultram] AdvReac grand mal Verified 10/27/18 12:39 seizures Review of Systems ROS Statement: Those systems with pertinent positive or pertinent negative responses have been documented in the HPI. ROS Other: All systems not noted in ROS Statement are negative. Past Medical History Past Medical History: Asthma, Supraventricular Tachycardia (SVT) Additional Past Medical History / Comment(s): last episode of SVT was 2 mo ago pt no longer takes meds for it due to being homeless ,hypoglyemia History of Any Multi-Drug Resistant Organisms: None Reported Past Surgical History: Cholecystectomy, Tonsillectomy, Tubal Ligation Past Anesthesia/Blood Transfusion Reactions: No Reported Reaction Past Psychological History: Anxiety, Depression Smoking Status: Current every day smoker Past Alcohol Use History: None Reported Past Drug Use History: Cocaine, Heroin - Past Family History Father Family Medical History: Congestive Heart Failure (CHF) Additional Family Medical History / Comment(s): passed at 50 Mother Additional Family Medical History / Comment(s): defib insertion passed at 67 General Exam - General Exam Comments Initial Comments: General: The patient is awake and alert, in no distress, and does not appear acutely ill. Eye: Pupils are equal, round and reactive to light, extra-ocular movements are intact. No nystagmus. There is normal conjunctiva bilaterally. No signs of icterus. Ears, nose, mouth and throat: There are moist mucous membranes and no oral lesions. Neck: The neck is supple, there is no tenderness or JVD. Cardiovascular: There is a regular rate and rhythm. No murmur, rub or gallop is appreciated. Respiratory: Lungs are clear to auscultation, respirations are non-labored, b reath sounds are equal. No wheezes, stridor, rales, or rhonchi. Gastrointestinal: Soft, non-distended, non-tender abdomen without masses or organomegaly noted. There is no rebound or guarding present. No CVA tenderness. Bowel sounds are unremarkable. Musculoskeletal: Normal ROM, no tenderness. Strength 5/5. Sensation intact. Pulses equal bilaterally 2+. Neurological: A&O x 3. CN II-XII intact, There are no obvious motor or sensory deficits. Coordination appears grossly intact. Speech is normal. Skin: Skin is warm and dry and no rashes or lesions are noted. No lower extremity edema. Negative Homans bilaterally. Psychiatric: Cooperative, appropriate mood & affect, normal judgment. Limitations: no limitations Course Vital Signs 10/27/18 10/27/18 12:13 14:06 Temperature 98.1 F 98.0 F Pulse Rate 75 63 Respiratory 22 18 Rate Blood Pressure 132/62 128/77 O2 Sat by Pulse 96 98 Oximetry EKG Findings - EKG Comments: EKG Findings:: Ventricular rate 66 bpm, KS interval 160 ms, QRS duration 82 ms, QT/QTC 410/429 ms. Normal sinus rhythm. Low voltage QRS. No ST elevation or depression nonspecific T-wave. EKG interpreted by myself as well as attending provider Dr. Brown. Medical Decision Making - Medical Decision Making Well-appearing 48-year-old female sent by primary care provider for chest pain that occurred 18 hours prior. Patient denies any current symptoms. Patient states it was a very sharp pain that only lasted for second intermittent for 2 hours while at work pushing heavy objects the night before. Patient has no concerning risk factors for deep venous thrombosis. D-dimer 0.23. EKG revealed no ST elevation or findings insistent with acute coronary syndrome. Initial troponin negative. Patient vital signs within acceptable limits. She appears well chest x-ray reveals no acute cardio pulmonary process. Patient is r equesting discharge. I contacted patient's primary care provider discussing results. At this time we feel patient is stable for discharge with outpatient scheduled echocardiogram and stress testing, to be arrange by NATHEN Hair. I discussed the case with attending provider Dr. Brown who is agreeable patient plan of care and discharge. She was offered admission for serial troponins however she refused. Low suspicion for acute coronary syndrome given patient's symptoms onset. The 18 hours ago which sharp in characteristic pain. Return parameters as well as all outpatient follow-up was discussed with patient verbalized understanding. Patient was discharged appearing well - Lab Data Result diagrams: 10/27/18 12:35 10/27/18 12:35 Lab Results 10/27/18 10/27/18 10/27/18 Range/Units 12:35 12:35 12:35 WBC 3.9 (3.8-10.6) k/uL RBC 4.10 (3.80-5.40) m/uL Hgb 11.8 (11.4-16.0) gm/dL Hct 35.9 (34.0-46.0) % MCV 87.5 (80.0-100.0) fL MCH 28.9 (25.0-35.0) pg MCHC 33.0 (31.0-37.0) g/dL RDW 14.5 (11.5-15.5) % Plt Count 175 (150-450) k/uL Neutrophils % 66 % Lymphocytes % 22 % Monocytes % 6 % Eosinophils % 2 % Basophils % 1 % Neutrophils # 2.6 (1.3-7.7) k/uL Lymphocytes # 0.9 L (1.0-4.8) k/uL Monocytes # 0.2 (0-1.0) k/uL Eosinophils # 0.1 (0-0.7) k/uL Basophils # 0.0 (0-0.2) k/uL PT 10.7 (9.0-12.0) sec INR 1.0 (<1.2) APTT 35.9 H (22.0-30.0) sec D-Dimer 0.23 (<0.60) mg/L FEU Sodium 137 (137-145) mmol/L Potassium 4.7 (3.5-5.1) mmol/L Chloride 110 H (98-107) mmol/L Carbon Dioxide 18 L (22-30) mmol/L Anion Gap 9 mmol/L BUN 12 (7-17) mg/dL Creatinine 0.48 L (0.52-1.04) mg/dL Est GFR (CKD-EPI)AfAm >90 (>60 ml/min/1.73 sqM) Est GFR (CKD-EPI)NonAf >90 (>60 ml/min/1.73 sqM) Glucose 105 H (74-99) mg/dL Calcium 8.8 (8.4-10.2) mg/dL Magnesium 1.4 L (1.6-2.3) mg/dL Total Bilirubin 0.7 (0.2-1.3) mg/dL AST 34 (14-36) U/L ALT 34 (9-52) U/L Alkaline Phosphatase 59 (38-126) U/L Troponin I (0.000-0.034) ng/mL Total Protein 6.7 (6.3-8.2) g/dL Albumin 3.9 (3.5-5.0) g/dL Lipase 33 (23-300) U/L 10/27/18 Range/Units 12:35 WBC (3.8-10.6) k/uL RBC (3.80-5.40) m/uL Hgb (11.4-16.0) gm/dL Hct (34.0-46.0) % MCV (80.0-100.0) fL MCH (25.0-35.0) pg MCHC (31.0-37.0) g/dL RDW (11.5-15.5) % Plt Count (150-450) k/uL Neutrophils % % Lymphocytes % % Monocytes % % Eosinophils % % Basophils % % Neutrophils # (1.3-7.7) k/uL Lymphocytes # (1.0-4.8) k/uL Monocytes # (0-1.0) k/uL Eosinophils # (0-0.7) k/uL Basophils # (0-0.2) k/uL PT (9.0-12.0) sec INR (<1.2) APTT (22.0-30.0) sec D-Dimer (<0.60) mg/L FEU Sodium (137-145) mmol/L Potassium (3.5-5.1) mmol/L Chloride (98-107) mmol/L Carbon Dioxide (22-30) mmol/L Anion Gap mmol/L BUN (7-17) mg/dL Creatinine (0.52-1.04) mg/dL Est GFR (CKD-EPI)AfAm (>60 ml/min/1.73 sqM) Est GFR (CKD-EPI)NonAf (>60 ml/min/1.73 sqM) Glucose (74-99) mg/dL Calcium (8.4-10.2) mg/dL Magnesium (1.6-2.3) mg/dL Total Bilirubin (0.2-1.3) mg/dL AST (14-36) U/L ALT (9-52) U/L Alkaline Phosphatase (38-126) U/L Troponin I <0.012 (0.000-0.034) ng/mL Total Protein (6.3-8.2) g/dL Albumin (3.5-5.0) g/dL Lipase (23-300) U/L Disposition Clinical Impression: Atypical chest pain Disposition: HOME SELF-CARE Condition: Good Instructions (If sedation given, give patient instructions): Chest Pain (ED) Additional Instructions: Please follow-up with family doctor in the next 2 days, I have discussed the importance of follow-up with your primary care provider who is agreeable and will schedule outpatient stress testing. Please return to emergency room if the symptoms return,increase or worsen or for any other concerns. Is patient prescribed a controlled substance at d/c from ED?: No Referrals: Azalea Martinez MD [Primary Care Provider] - 1-2 days Time of Disposition: 13:47
[2018-10-27 14:07] VITALS: BP 128/77; PULSE 63; RESP 18; TEMP 98
== END 2018-10-27 14:07 | disposition home or self-care (01) ==
LOC: EC 12:07
DX: R07.89 Other chest pain (principal); Z53.29 Procedure and treatment not carried out because of patient's decision for other reasons; J45.909 Unspecified asthma, uncomplicated; F17.200 Nicotine dependence, unspecified, uncomplicated; Z91.013 Allergy to seafood; Z88.5 Allergy status to narcotic agent
CPT/HCPCS: 36415; 71046; 80053; 83690; 83735; 84484; 85025; 85379; 85610; 85730; 93005; 99285